=== PATIENT | female | born 1975 | race Caucasian/White ===

== ENCOUNTER 2020-06-17 03:13 | Inpatient (IN) | payer MEDICARE, MEDICAID ==
[~2020-06-17] VITALS: Ht 182.9 cm; Wt 93.2 kg
--- NOTE | ~2020-06-17 | EC ---
PATIENT:ALVIN URBAN DATE OF SERVICE: 06/17/20 SEX: F MEDICAL RECORD: [id number] DATE OF : [birth year] LOCATION:D. D.212 AGE OF PATIENT: 44 ADMISSION DATE: 06/17/20 REFERRING PHYSICIAN: INTERPRETING PHYSICIAN: KULWANT JENSEN MD ECHOCARDIOGRAM REPORT ECHO CHARGES 4 ECHO COMPLETE Date: 06/17/20 CLINICAL DIAGNOSIS: NSTE CO ECHOCARDIOGRAPHIC MEASUREMENTS (adult normal given) AC root (d.<3.7cm) 3.3 cm LV Septum d (<1.2 cm> 1.8 cm Valve Excursion 1.5 cm LV Septum (systole) 2.0 cm Left Atria (s.<4.0cm> 3.7 cm LVPW d(<1.2cm) 1.5 cm RV (d.<2.3cm) 3.1 cm LVPW (sytole) 2.0 cm LV diastole(<5.6CM) 3.7 cm MV E-F(>70mm/sec) cm LV systole 1.9 cm LVOT Diameter 1.9 cm MV exc.(>10mm) 1.7 cm Est.ejection fraction (50-75%) % DOPPLER: LVIT cm/sec A 66.0 cm/sec E 83.0 cm/sec LA cm/sec RVSP 20 mmHg LVOT 94 cm/sec AOP1/2T m/s Asc. Ao 164 cm/sec RVOT 74 cm/sec RA cm/sec PA 112 cm/sec AV Gradient Peak 10.73mmHg AV Mean 7.08 mmHg AV Area 1.7 cm MV Gradient Peak 3.75 mmHg MV Mean 1.79 mmHg MV Area cm COMMENTS: Electrical Maintenance Technician: 2 SILVIANO LAYNE Aerophysics Engineer: 4 Dr. Jensen TAPE# PACS Pericardial Effusion Y DATE OF SERVICE: 06/17/2020 PROCEDURE: Transthoracic echocardiogram. FINDINGS: 1. The left ventricle shows moderate concentric left ventricular hypertrophy. There is no obvious regional wall motion abnormalities. Ejection fraction is 65% to 70% and hyperdynamic. 2. Left atrium is normal size, shape, structure, and function. ECHOCARDIOGRAM REPORT [id number] ALVIN URBAN Aortic valve is normal. Mitral valve is normal. Tricuspid valve is normal. Right ventricle is mildly enlarged, but with good function and the right ventricular systolic pressure is normal. There is a trace pericardial effusion. Pulmonic valve is normal. TRANSINT:[id number] Voice Confirmation ID: [id number] DOCUMENT ID: [id number] KULWANT JENSEN MD CC: [id number] DICTATION DATE: 06/17/201143 DATA MANAGEMENT ANALYST: 06/17/202056 ADM IN [facility] [address] [place] [address]
[2020-06-17 03:30] VITALS: BP 151/77
[2020-06-17 03:36] LABS: BASOPHILS 0.6 % (0-2); EOSINOPHILS 3.9 % (0-7); HEMATOCRIT 43.7 % (36.0-48.0); HEMOGLOBIN 14.2 g/dL (12-16); IMMATURE GRANULOCYTES 0.4 % (0-5); LYMPHOCYTES 43.6 % (15-50); MCH 29.6 pg (26.0-34.0); MCHC 32.5 g/dL (31.0-37.0); MEAN PLATELET VOLUME 10.5 fL (7.4-10.4); MONOCYTES 8.4 % (2-11); NEUTROPHILS 43.1 % (40-80); PLATELET COUNT 272 10x3/uL (130-400); RDW 13.2 % (11.5-14.5); WBC 10.8 10x3/uL (4.8-10.8)
[2020-06-17 03:45] LABS: CALC OSMOLALITY 272 mosm/kg (275-300); CALCIUM 9.4 mg/dL (8.5-10.1); CARBON DIOXIDE 29.5 mmol/L (21.0-32.0); CHLORIDE - SERUM 103 mmol/L (98-107); CREATININE - SERUM 1.1 mg/dL (0.6-1.3); GLUCOSE 92 mg/dL (74-106); POTASSIUM - SERUM 3.5 mmol/L (3.5-5.1); SODIUM 137 mmol/L (136-145); UREA NITROGEN 9 mg/dL (7-18); eGFR NON AFRICAN AMERICAN 57 mL/min (90-120)
[2020-06-17] MEDS ORDERED: AZELASTINE137 MCG/0. NASAL (03:45)
[2020-06-17] MEDS ORDERED: LIPITOR80 MG PO (03:45)
[2020-06-17] MEDS ORDERED: CRANBERRY (03:46)
[2020-06-17] MEDS ORDERED: LASIX20 MG PO (03:47)
[2020-06-17] MEDS ORDERED: FLUTICASONE PRO16 GM NASAL (03:47)
[2020-06-17] MEDS ORDERED: NEURONTIN600 MG PO (03:48)
[2020-06-17] MEDS ORDERED: MAGNESIUM OXID500 MG PO (03:49)
[2020-06-17] MEDS ORDERED: MULTIVITAMIN PO (03:49)
[2020-06-17] MEDS ORDERED: MYRBETRIQ50 MG PO (03:50)
[2020-06-17] MEDS ORDERED: PROTONIX40 MG PO (03:50)
[2020-06-17] MEDS ORDERED: VITAMIN B-1100 M1 PO (03:50)
[2020-06-17] MEDS ORDERED: OXYBUTYNIN CHLOR5 MG PO (03:51)
[2020-06-17] MEDS ORDERED: RANEXA1000 MG PO ×2 (03:52→03:57)
[2020-06-17] MEDS ORDERED: REXULTI1 MG PO (03:52)
[2020-06-17] MEDS ORDERED: ZOLOFT100 MG PO (03:53)
[2020-06-17] MEDS ORDERED: STOOL SOFTENER PO (03:53)
[2020-06-17 03:54] LABS: INR 1.14 (0.85-1.17); PROTIME 14.5 SECONDS (11.6-15.0)
[2020-06-17] MEDS ORDERED: TRAZODONE HCL150 MG PO (03:54)
[2020-06-17] MEDS ORDERED: ZANAFLEX4 MG PO (03:54)
[2020-06-17] MEDS ORDERED: ULTRAM50 MG PO (03:55)
[2020-06-17] MEDS ORDERED: VALIUM5 MG PO (03:55)
[2020-06-17] MEDS ORDERED: VITAMIN B-12500 MCG PO (03:56)
[2020-06-17] MEDS ORDERED: DEXILANT60 MG PO (03:56)
[2020-06-17] MEDS ORDERED: ELIQUIS5 MG PO (03:56)
[2020-06-17] MEDS ORDERED: LINZESS290 MCG PO (03:56)
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
[2020-06-17 04:06] LABS: ALBUMIN 3.3 g/dL (3.4-5.0); ALKALINE PHOSPHATASE 129 U/L (30-120); ALT (SGPT) 24 U/L (10-68); BILIRUBIN - TOTAL 0.48 mg/dL (0.2-1.3); CKMB 1.1 U/L (0.0-3.6); CREATINE KINASE 27 UL (21-215); PROTEIN - SERUM 7.5 g/dL (6.4-8.2)
[2020-06-17 04:07] LABS: TROPONIN-I 0.364 ng/mL (0.000-0.060)
[2020-06-17 04:51] VITALS: BP 148/90
--- NOTE | 2020-06-17 04:57 | NUR ---
THE IV THAT PATIENT ARRIVED WITH INFILTRATED, DC'D PRESSURE APPLIED, NEW ONE ESTABLISHED.
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
[2020-06-17 09:30] VITALS: BP 144/93; BMI 27.9
--- NOTE | 2020-06-17 09:46 | NUR ---
QUICKSTART, HISTORY, MED REQ, AND ASSESSMENT COMPLETED. RR EVEN AND UNLABORED ON RA. VSS AND WNL. CHRONIC OCAMPO CATH IN PLACE AND DRAINING URINE. NO S/S OF DISTRESS NOTED. PT DENIES ANY NEEDS AT THIS TIME. NS INFUSING @50ML/HR VIA L.AC PIV. WILL CTM.
[2020-06-17 10:44] LABS: GLUCOSE NEGATIVE (NEGATIVE); KETONE NEGATIVE (NEGATIVE); NITRITE POSITIVE (NEGATIVE); SPECIFIC GRAVITY 1.015 (1.005-1.020); UROBILINOGEN NORMAL (NORMAL)
[2020-06-17 10:45] LABS: BILIRUBIN NEGATIVE (NEGATIVE)
[2020-06-17 10:46] LABS: BACTERIA MODERATE /hpf (NEGATIVE); WHITE CELLS - URINE 0-5 /hpf (NEGATIVE)
[2020-06-17 10:50] LABS: UDS - AMPHET NEGATIVE QUAL (NEGATIVE); UDS - BARB NEGATIVE QUAL (NEGATIVE); UDS - BENZO POSITIVE QUAL (NEGATIVE); UDS - COCAINE NEGATIVE QUAL (NEGATIVE); UDS - OPIATE POSITIVE QUAL (NEGATIVE); UDS - PCP NEGATIVE QUAL (NEGATIVE); UDS - THC NEGATIVE QUAL (NEGATIVE)
[2020-06-17 15:27] VITALS: BP 127/62
[2020-06-17 20:00] VITALS: BP 132/70
--- NOTE | 2020-06-17 22:09 | NUR ---
INITIAL ROUNDS COMPLETED AT 1910 HRS. PT RESTING WITH EYES CLOSED. RESP EVEN AND REGULAR. ASSESSMENT COMPLETED AT 1999 HRS. VSS. SR PER CM HR 74. ALERT AND ORIENTED TO PERSON, PLACE AND TIME. LOGAN. IV TO LFA WITH NS AT 50CC/HR. IV PATENT. LUNGS ESENTIALLY CTA. ABD SOFT WITH ACTIVE BS NOTED. OCAMPO DRAINING YELLOW URINE. SCARS NOTED T BILAT OUTER SHINS. PALPABLE PERIPHERAL PULSES. HAS CHRONIC C/O BURNING LEGS. PM MEDS GIVEN INCLUDING VALIUM, ULTRAM AND TRAZADONE. PT CURRENTLY RESTING WITH EYES CLOSED. RESP EVEN AND REGULAR. SR UP X2, CALL LIGHT WITHIN REACH.
--- NOTE | 2020-06-18 00:21 | NUR ---
PT RESTING WITH EYES CLOSED. RESP EVEN AND REGULAR. SR UP X2, CALL LIGHT WITHIN REACH.
--- NOTE | 2020-06-18 01:12 | NUR ---
PT RESTING WITH EYES CLOSED. RESP EVEN AND REGULAR. SR UP X2, CALL LIGHT WITHIN REACH.
[2020-06-18 04:00] VITALS: BP 127/75
--- NOTE | 2020-06-18 04:29 | NUR ---
CHICKEN NOODLE SOUP GIVEN PER REQUEST. NO DISTRESS NOTED. SR UP X2, CALL LIGHT WITHIN REACH.
--- NOTE | 2020-06-18 05:52 | NUR ---
MORPHNE 4MG SIVP GIVEN FOR C/O BURNING PAIN TO BILAT LEGS. VSS THROUGHOUT NIGHT. SR PER CM. NEEDS MET; WILL CONTINUE TO MONITOR.
[2020-06-18 06:06] LABS: BASOPHILS 0.5 % (0-2); EOSINOPHILS 5.5 % (0-7); HEMATOCRIT 42.1 % (36.0-48.0); HEMOGLOBIN 13.7 g/dL (12-16); IMMATURE GRANULOCYTES 0.4 % (0-5); LYMPHOCYTES 42.3 % (15-50); MCH 29.7 pg (26.0-34.0); MCHC 32.5 g/dL (31.0-37.0); MCV 91.1 fL (80.0-100.0); MEAN PLATELET VOLUME 10.4 fL (7.4-10.4); MONOCYTES 8.3 % (2-11); PLATELET COUNT 253 10x3/uL (130-400); RBC 4.62 10x6/uL (4.00-5.40); RDW 13.4 % (11.5-14.5); WBC 8.4 10x3/uL (4.8-10.8)
[2020-06-18 06:32] LABS: ANION GAP 10.2 mmol/L (8-16); CALCIUM 8.9 mg/dL (8.5-10.1); CARBON DIOXIDE 25.4 mmol/L (21.0-32.0); POTASSIUM - SERUM 3.6 mmol/L (3.5-5.1)
--- NOTE | 2020-06-18 07:00 | NUR ---
RECEIVED REPORT. ASSUMED CARE OF PATIENT. CALL LIGHT WITHN REACH. PATIENT WITH EYES OPEN, RESTING IN BED. DENIES NEEDS AT THIS TIME. NO DISTRESS. WHITE BOARD UPDATED, BEDSIDE SHIFT REPORT COMPLETE.
[2020-06-18 09:24] VITALS: BP 166/86
--- NOTE | 2020-06-18 11:51 | NUR ---
MEDICATED FOR PAIN AND NAUSEA AT THIS TIME. NO DISTRESS. CALL LIGHT WITHIN REACH.
[2020-06-18 12:00] VITALS: BP 144/77
[2020-06-18 16:00] VITALS: BP 126/75
--- NOTE | 2020-06-18 16:29 | NUR ---
MEDICATED FOR PAIN. MEDICATED TO PREVENT NAUSEA. NO DISTRESS. PATIENT WITH ATTENTION TO CELL PHONE. CALL LIGHT WITHIN REACH. COLA PROVIDED.
--- NOTE | 2020-06-18 19:22 | NUR ---
INITIAL ROUNDS COMPLETED. PT DENIED ANY DISCOMFORT. SR UP X2,CALL LIGHT WITHIN REACH.
[2020-06-18 20:48] VITALS: BP 140/74
--- NOTE | 2020-06-18 22:23 | NUR ---
ASSESSMENT COMPLETED AT 1950 HRS. VSS. ALERT AND ORIENTED TO PERSON,PLACE AND TIME. LOGAN. IV TO LFA WITH NS AT 50CC/HR. IV PATENT. LUNGS ESSENTIALLY CTA. LOGAN. PALPABLE PERIPHERAL PULSES. IMPAIRED ROM TO LOWER EXTREMITIES. SCARS NOTED TO BILAT OUTER ASPECT OF LOWER LEGS. OCAMPO DRAINING YELLOW URINE. PM MEDS GIVEN PER ORDERS. SR PER CM HR 71. PT CURRENTLY SITTING ON SIDE OF BED. NO DISTRESS NOTED. SR U PX2,CALL LIGHT WITHIN REACH.
--- NOTE | 2020-06-18 23:05 | NUR ---
MORHINE 4MG SIVP GIVEN FOR C/O CHRONIC LEG PAIN. ZOFRAN 4MG SIVP GIVEN FOR C/O NAUSEA. CALL LIGHT WITHIN REACH.
[2020-06-19 00:27] VITALS: BP 140/92
--- NOTE | 2020-06-19 02:50 | NUR ---
MORPHINE 4MG SIVP GIVEN FOR C/O LEG PAIN. ZOFRAN 4MG SIVP GIVEN FOR C/O NAUSEA. SR UP X2, CALL LIGHT WITHIN REACH.
[2020-06-19 04:05] VITALS: BP 140/80
--- NOTE | 2020-06-19 04:26 | NUR ---
PT RESTING WITH EYES CLOSED. RESP EVEN AND REGULAR. SR UP X2, CALL LIGHT WITHIN REACH.
[2020-06-19 05:46] LABS: BASOPHILS 0.4 % (0-2); EOSINOPHILS 4.8 % (0-7); HEMATOCRIT 40.6 % (36.0-48.0); HEMOGLOBIN 12.8 g/dL (12-16); IMMATURE GRANULOCYTES 0.3 % (0-5); LYMPHOCYTES 47.8 % (15-50); MCH 28.7 pg (26.0-34.0); MCHC 31.5 g/dL (31.0-37.0); MEAN PLATELET VOLUME 10.4 fL (7.4-10.4); MONOCYTES 7.1 % (2-11); NEUTROPHILS 39.6 % (40-80); PLATELET COUNT 249 10x3/uL (130-400); RBC 4.46 10x6/uL (4.00-5.40); RDW 13.4 % (11.5-14.5); WBC 9.4 10x3/uL (4.8-10.8)
[2020-06-19 06:16] LABS: ANION GAP 14.1 mmol/L (8-16); CALCIUM 8.8 mg/dL (8.5-10.1); CARBON DIOXIDE 24.2 mmol/L (21.0-32.0); POTASSIUM - SERUM 3.3 mmol/L (3.5-5.1)
--- NOTE | 2020-06-19 06:16 | NUR ---
VSS TTHROUGHOUT NIGHT. SR PER CM. PT STATES IV MORPHNE HELPED CONTROL HER CHRONIC PAIN. NEEDS MET; WILL CONTINUE TO MONITOR.
--- NOTE | 2020-06-19 07:00 | NUR ---
RECEIVED REPORT. ASSUMED CARE OF PATIENT. PATIENT RESTING IN BED WITH EYES OPEN, ATTENTION TOWARD CELL PHONE. WHITE BOARD UPDATED. BEDSIDE SHIFT REPORT COMPLETE. DENIES NEEDS AT THIS TIME. NO DISTRESS. CALL LIGHT WITIN REACH.
[2020-06-19 10:33] VITALS: BP 118/70
--- NOTE | 2020-06-19 10:34 | NUR ---
MEDICATED FOR PAIN AT THIS TIME. NO DISTRESS.
[2020-06-19] MEDS ORDERED: LEVOFLOXACIN500 MG PO (12:11)
[2020-06-19 13:00] VITALS: Ht 182.9 cm; Wt 93.2 kg
[2020-06-19 14:24] VITALS: BP 130/66
--- NOTE | 2020-06-19 14:49 | NUR ---
MEDICATED FOR PAIN AT THIS TIME. NO DISTRESS.
--- NOTE | 2020-06-19 16:09 | NUR ---
PAGE INTO [facility] FOR [facility]A YI FOR DISCHARGE. AWAITING CALL BACK TO FINISH DISCHARGE.
[2020-06-19] MEDS ORDERED: LOPRESSOR25 MG PO (16:42)
[2020-06-19] MEDS ORDERED: BAYER CHEWABLE81 MG PO (16:43)
--- NOTE | 2020-06-19 17:00 | NUR ---
22 GAUGE IV REMOVED FROM LEFT FOREARM. CATHETER TIP INTACT. NO BLEEDING FROM SITE. 2X2 GAUZE APPLIED AND SECURED WITH BANDAID. DISCHARGE INSTRUCTIONS PROVIDED. PATIENT VERBALIZED UNDERSTANDING OF ALL INSTRUCTIONS PROVIDED. PATIENT IS ALSO AWARE THAT SHE HAS TRAMADOL AND VALIUM READY TO BE PICKED UP AT [facility] IN [facility] FROM HER PCP. PATIENT HAD NO FURTHER QUESTOINS. TELEMETRY REMOVED AND RETURNED TO CIRCUIT BREAKER MECHANIC AT THIS TIME.
--- NOTE | 2020-06-19 17:44 | NUR ---
STILL WAITING ON [facility] BUS TO CALL FOR PATIENT PICKUP.
--- NOTE | 2020-06-19 19:26 | NUR ---
ASSISTED PATIENT TO THE [facility] BUS FROM TRANSPORT HOME. ALL DISCHARGE TEACHING AND PIV REMOVAL DONE. NO OHTER NEEDS AT THIS TIME.
== END 2020-06-19 19:28 | disposition home or self-care (01) | DRG 689 ==
LOC: D.ER 03:13 → D.M2 03:31 → OBSVTIME 03:31 → D.M2 06-18 18:04
PROVIDERS: Family Medicine; ADMIT Family Medicine; ATTEND Family Medicine
DX: N39.0 Urinary tract infection, site not specified (principal); I21.A1 Myocardial infarction type 2; F17.213 Nicotine dependence, cigarettes, with withdrawal; I25.10 Atherosclerotic heart disease of native coronary artery without angina pectoris; I10 Essential (primary) hypertension; I48.91 Unspecified atrial fibrillation; J44.9 Chronic obstructive pulmonary disease, unspecified; K21.9 Gastro-esophageal reflux disease without esophagitis; Z86.73 Personal history of transient ischemic attack (TIA), and cerebral infarction without residual deficits